=== PATIENT | male | born 1975 | race African-American/Black ===

== ENCOUNTER 2021-01-26 04:39 | Emergency (ER) | payer SELFPAY ==
--- NOTE | 2021-01-26 07:26 | EDPHYS ---
Physician Documentation [facility] Name: Ciro Benjamin Age: 45 yrs Sex: Male : 1975 Arrival Date: 01/26/2021 Time: 04:40 Bed 17 Private MD: ED Physician Mario Stiles HPI: 01/26 07:22 This 45 yrs old Black Male presents to ER via Law Enforcement with complaints of jmm Ingested Drugs. 07:22 Associated signs and symptoms: Pertinent negatives: decreased level of consciousness, jmm depression, diarrhea, incontinence, loss of consciousness, nausea, shortness of breath, visual hallucinations, vomiting. 45-year-old presents emergency department. Patient has no complaints. Denies chest pain, vomiting, shortness of breath, abdominal pain, diarrhea. According to PD the patient ingested a plastic bag full of ecstasy. And was advised to have the patient cleared before returning to alf.. Historical: - Allergies: 05:06 Unable to obtain; wg - Home Meds: 05:06 Unable to obtain [Active]; wg - PMHx: 05:06 Unable to Obtain; wg - Social history:: Smoking status: unknown Patient/guardian denies using. - Unable to obtain history due to: patient being uncooperative. - Ebola Screening: : Patient negative for fever greater than or equal to 101.5 degrees Fahrenheit, and additional compatible Ebola Virus Disease symptoms Patient denies exposure to infectious person Patient denies travel to an Ebola-affected area in the 21 days before illness onset No symptoms or risks identified at this time. ROS: 07:22 Constitutional: Negative for fever, chills, and weight loss, Cardiovascular: Negative jmm for chest pain, palpitations, and edema, Respiratory: Negative for shortness of breath, cough, wheezing, and pleuritic chest pain, Neuro: Negative for headache, weakness, numbness, tingling, and seizure. 07:22 All other systems are negative. Exam: 07:22 Constitutional: This is a well developed, well nourished patient who is awake, alert, jmm and in no acute distress. Head/Face: atraumatic. Eyes: EOMI, no conjunctival erythema appreciated ENT: Moist Mucus Membranes Neck: Trachea midline, Supple Chest/axilla: Normal chest wall appearance and motion. Cardiovascular: Regular rate and rhythm. No edema appreciated Respiratory: Normal respirations, no respiratory distress appreciated Abdomen/GI: Non distended, soft Back: Normal ROM Skin: General appearance color normal MS/ Extremity: Moves all extremities, no obvious deformities appreciated, no edema noted to the lower extremities Neuro: Awake and alert, normal gait Psych: Behavior is normal, Mood is normal, Patient is cooperative and pleasant Vital Signs: 05:02 BP 144 / 84; Pulse 98; Resp 20; Temp 97.9; Pulse Ox 100% on R/A; Weight 81.65 kg; wg Height 5 ft. 9 in. (175.26 cm); Pain 0/10; 07:18 BP 116 / 82; Pulse 90; Resp 17; Pulse Ox 100% on R/A; Pain 0/10; ch4 05:02 Body Mass Index 26.58 (81.65 kg, 175.26 cm) wg MDM: 07:18 Patient medically screened. [facility] 07:24 Data reviewed: vital signs, nurses notes. Counseling: I had a detailed discussion with scott the patient and/or guardian regarding: the historical points, exam findings, and any diagnostic results supporting the discharge/admit diagnosis, the need for outpatient follow up, to return to the emergency department if symptoms worsen or persist or if there are any questions or concerns that arise at home. ED course: Patient is alert nontoxic in appearance in the ED. Patient currently has no symptomology secondary to ingestion. Vital signs are normal. PD is advised to return the patient to the ER if he does develop vomiting shortness of breath increased heart rate or any other concerning symptoms.. Administered Medications: No medications were administered Disposition: 07:51 Co-signature as Attending Physician, Mario Stiles MD I agree with the assessment and [facility] plan of care. Disposition Summary: 01/26/21 07:25 Discharge Ordered Location: Home [facility] Condition: Stable [facility] Diagnosis - Person with feared health complaint in whom no diagnosis is made chris Followup: [facility] - With: Private Physician - When: 2 - 3 days - Reason: Recheck today's complaints, Continuance of care, Re-evaluation by your physician Forms: - Medication Reconciliation Form [facility] - Thank You Letter scott - Antibiotic Education chris - Prescription Opioid Use chris Signatures: Mario Stiles MD MD cha Mickail, Joel, PA PA jmm Gamba, Williams wg
--- NOTE | 2021-01-26 07:26 | ER ---
Nurse's Notes [facility] Name: Ciro Benjamin Age: 45 yrs Sex: Male : 1975 Arrival Date: 01/26/2021 Time: 04:40 Bed 17 Private MD: Diagnosis: Person with feared health complaint in whom no diagnosis is made Presentation: 01/26 05:02 Chief complaint: Per law enforcement pt consumed 5 ecstasy and alcohol approximately an wg hour ago. Pt states he hasn't consumed any drugs or alcohol. Per TERRY pt in custody. Pt denies any complaints and just wants to call his family to tell them he is here. Coronavirus screen: Client denies travel out of the [place] in the last 14 days. At this time, the client does not indicate any symptoms associated with coronavirus-19. Ebola Screen: Patient negative for fever greater than or equal to 101.5 degrees Fahrenheit, and additional compatible Ebola Virus Disease symptoms Patient denies exposure to infectious person. Patient denies travel to an Ebola-affected area in the 21 days before illness onset. No symptoms or risks identified at this time. Initial Sepsis Screen: Does the patient meet any 2 criteria? No. Patient's initial sepsis screen is negative. Does the patient have a suspected source of infection? No. Patient's initial sepsis screen is negative. Risk Assessment: Do you want to hurt yourself or someone else? Patient reports no desire to harm self or others. Onset of symptoms was January 26, 2021 at 04:00. Care prior to arrival: None. Activity prior to arrival: None. 05:02 Method Of Arrival: Law Enforcement: Junaid CHOWDHURY wg 05:02 Acuity: ZENAIDA 3 wg 05:09 Note Pt requiring medical clearance. Pt uncooperative, in handcuffs, pt swearing and wg not answering many questions from inspector watch train. Pt appears A\T\O but rambling, cursing and making verbal threats to TERRY and inspector watch train. 05:09 Note Per TERRY apparently pt was seen on video footage consuming the substances. wg Triage Assessment: 05:06 General: Appears in no apparent distress. Behavior is agitated, uncooperative, Smells wg of alcohol. Pain: Denies pain. EENT: No deficits noted. Neuro: No deficits noted. Cardiovascular: No deficits noted. Respiratory: No deficits noted. GI: No deficits noted. : No deficits noted. Derm: No deficits noted. Musculoskeletal: No deficits noted. Injury Description:. Historical: - Allergies: 05:06 Unable to obtain; wg - Home Meds: 05:06 Unable to obtain [Active]; wg - PMHx: 05:06 Unable to Obtain; wg - Social history:: Smoking status: unknown Patient/guardian denies using. - Unable to obtain history due to: patient being uncooperative. - Ebola Screening: : Patient negative for fever greater than or equal to 101.5 degrees Fahrenheit, and additional compatible Ebola Virus Disease symptoms Patient denies exposure to infectious person Patient denies travel to an Ebola-affected area in the 21 days before illness onset No symptoms or risks identified at this time. Screenin:16 Abuse screen: Denies threats or abuse. Nutritional screening: No deficits noted. ch4 Tuberculosis screening: No symptoms or risk factors identified. Fall Risk None identified. Assessment: 07:14 General: Appears in no apparent distress. Behavior is calm. Pain: Denies pain. Neuro: ch4 Level of Consciousness is awake, alert, Oriented to person, place, time, situation, [employer] Hands are equal bilaterally Moves all extremities. Gait is steady, Speech is normal. Cardiovascular: Denies chest pain. Respiratory: Airway is patent Respiratory effort is even, unlabored, Respiratory pattern is regular, symmetrical. GI: PD reports patients ingested unknown substance in plastic bag. : No signs and/or symptoms were reported regarding the genitourinary system. EENT: No signs and/or symptoms were reported regarding the EENT system. Derm: No signs and/or symptoms reported regarding the dermatologic system. Vital Signs: 05:02 BP 144 / 84; Pulse 98; Resp 20; Temp 97.9; Pulse Ox 100% on R/A; Weight 81.65 kg; wg Height 5 ft. 9 in. (175.26 cm); Pain 0/10; 07:18 BP 116 / 82; Pulse 90; Resp 17; Pulse Ox 100% on R/A; Pain 0/10; ch4 05:02 Body Mass Index 26.58 (81.65 kg, 175.26 cm) wg ED Course: 04:40 Patient arrived in ED. bp1 05:06 Triage completed. wg 05:06 Arm band placed on right wrist. wg 07:05 Mickail, Xavi, PA is PHCP. [facility] 07:05 Mario Stiles MD is Attending Physician. [facility] 07:08 Teagan Perrin, RN is Primary Nurse. ch4 07:17 Patient has correct armband on for positive identification. Bed in low position. ch4 Security at bedside. Pulse ox on. NIBP on. Sitter at bedside. 07:34 No provider procedures requiring assistance completed. Patient did not have IV access ap3 during this emergency room visit. Administered Medications: No medications were administered Outcome: 07:25 Discharge ordered by MD. [facility] 07:34 Discharged to Law Enforcement ap3 07:34 Condition: good 07:34 Discharge instructions given to police, Instructed on discharge instructions, follow up and referral plans. Demonstrated understanding of instructions, follow-up care. 07:34 Patient left the ED. ap3 Signatures: Xavi Chávez PA PA Lakshmi Lopez, RN RN ap3 Annie Chavez bp1 Teagan Perrin, RN RN ch4 Reinaldo Shanks
[2021-01-26 07:40] VITALS: TEMP 97.9; O2SAT 100
[2021-01-26 07:42] VITALS: BP 116/82
== END 2021-01-26 07:34 | disposition home or self-care (01) ==
LOC: ER 04:39
DX: Z71.1 Person with feared health complaint in whom no diagnosis is made (principal)
CPT/HCPCS: 99284